=== PATIENT | female | born 1990 | race Asian ===

== ENCOUNTER 2018-11-10 07:07 | Emergency (ER) | payer OTHER ==
[~2018-11-10] VITALS: Ht 154.9 cm; Wt 55.3 kg
[2018-11-10 07:19] VITALS: Ht 154.9 cm; Wt 55.3 kg
[2018-11-10 08:08] LABS: BASOPHIL % 0.3 % (0-2); PLATELET COUNT 171 x10^3mcL (130-400); RED CELL DISTRIBUTION WIDTH 13.3 % (11.5-14.5)
[2018-11-10 08:41] LABS: microscopic required? YES; urine erythrocyte 2+ (NEGATIVE)
[2018-11-10 10:33] VITALS: BP 112/70
== END 2018-11-10 10:33 | disposition home or self-care (01) ==
LOC: ED 07:07
PROVIDERS: Emergency Medicine
DX: O20.0 Threatened abortion (principal); O23.592 Infection of other part of genital tract in pregnancy, second trimester; Z3A.17 17 weeks gestation of pregnancy
CPT/HCPCS: 36415